=== PATIENT | female | born 1945 | race Hispanic/Latino ===

== ENCOUNTER 2018-10-03 16:31 | Emergency (ER) | payer MEDICARE, OTHER ==
[2018-10-03 16:42] VITALS: PULSE 77; RESP 18; TEMP 98.6; O2SAT 99
--- NOTE | 2018-10-03 17:51 | CT ---
Date of service: 10/03/2018 PROCEDURE: CT HEAD WITHOUT CONTRAST. HISTORY: trauma to right side of head with dizziness COMPARISON: None available. TECHNIQUE: Axial computed tomography images were obtained through the head/brain without intravenous contrast. Radiation dose: Total exam DLP = 749.25 mGy-cm. This CT exam was performed using one or more of the following dose reduction techniques: Automated exposure control, adjustment of the mA and/or kV according to patient size, and/or use of iterative reconstruction technique. FINDINGS: HEMORRHAGE: No intracranial hemorrhage. BRAIN: Good corticomedullary differentiation is seen. Limited but proportional, diffuse expansion of the ventriculosulcal and cisternal spaces is appreciated with very mild white matter lucency compatible with diffuse cerebral atrophy and chronic microangiopathy. No suspicious extra-axial fluid collection is identified and the midline brain anatomy appears grossly nonfocal as imaged. There is no mass effect throughout. VENTRICLES: Unremarkable. No hydrocephalus. CALVARIUM: No destructive bony lesion or displaced fracture identified including through the skullbase. PARANASAL SINUSES: Unremarkable as visualized. No significant inflammatory changes. MASTOID AIR CELLS: Unremarkable as visualized. No inflammatory changes. OTHER FINDINGS: None. IMPRESSION: Limited age-appropriate age related neuro degenerative change are identified without definite acute intracranial findings as discussed above. No fracture identified.
--- NOTE | 2018-10-03 18:29 | ED PDOC ---
HPI: Trauma/Fall - HPI Time Seen by Provider: 10/03/18 17:06 Chief Complaint (Nursing): Trauma Chief Complaint (Provider): fall injuries History Per: Patient History/Exam Limitations: no limitations Onset/Duration Of Symptoms: Days (today) Location Of Injury: Right: Hand Associated Symptoms: denies: LOC Additional Complaint(s): Sheba Bernabe is a 72 year old female, with no significant past medical history, who presents to the emergency department complaining of pain to right hand and head s/p mechanical fall today. Patient reports she was walking with daughter when she slipped on the sidewalk hitting the right side of her face. Patient states she fell with her right hand out. She initially had pain to the r ight knee but no swelling and states pain has since resolved. She reports feeling nauseous immediately after falling but denies any LOC. Patient went home for a while and came to ED to make sure there was no occult injury. She denies any other injuries or medical complaints. PMD: None provided. Past Medical History Reviewed: Historical Data, Nursing Documentation, Vital Signs Vital Signs: Last Vital Signs Temp 98.6 F 10/03/18 16:39 Pulse 77 10/03/18 16:39 Resp 18 10/03/18 16:39 BP 148/70 10/03/18 16:39 Pulse Ox 99 10/03/18 16:39 - Medical History PMH: No Chronic Diseases - Surgical History Surgical History: No Surg Hx - Family History Family History: States: Unknown Family Hx - Immunization History Hx Tetanus Toxoid Vaccination: Yes Hx Influenza Vaccination: No Hx Pneumococcal Vaccination: Yes (2015) - Allergies Allergies/Adverse Reactions: Allergies Allergy/AdvReac Type Severity Reaction Status Date / Time Penicillins Allergy RASH Verified 10/03/18 16:39 thimerosal Allergy RASH Verified 10/03/18 16:39 Review of Systems ROS Statement: Except As Marked, All Systems Reviewed And Found Negative Gastrointestinal: Negative for: Nausea (resolved) Musculoskeletal: Positive for: Hand Pain (right), Other (head). Negative for: Leg Pain (no swelling) Neurological: Negative for: Other (LOC) Physical Exam - Reviewed Nursing Documentation Reviewed: Yes Vital Signs Reviewed: Yes - Physical Exam Appears: Positive for: No Acute Distress Head Exam: Positive for: ATRAUMATIC (No visible trauma, swelling, ecchymosis or abrasions), NORMAL INSPECTION, NORMOCEPHALIC Skin: Positive for: Normal Color, Warm, Dry Eye Exam: Positive for: Normal appearance, EOMI, PERRL ENT: Positive for: Normal ENT Inspection Neck: Positive for: Normal, Painless ROM, Supple Cardiovascular/Chest: Positive for: Regular Rate, Rhythm. Negative for: Murmur Respiratory: Positive for: Normal Breath Sounds. Negative for: Respiratory Distress Pulses-Radial (L): 2+ Pulses-Radial (R): 2+ Gastrointestinal/Abdominal: Positive for: Normal Exam, Soft. Negative for: Tenderness Back: Positive for: Normal Inspection. Negative for: L CVA Tenderness, R CVA Tenderness, Vertebral Tenderness Extremity: Positive for: Normal ROM (Full ROM of right hand and all digits.), Other (Distal pulses 2+). Negative for: Deformity, Swelling (to right hand) Neurologic/Psych: Positive for: Alert, wire transfer clerk II-XII (intact), Oriented (x3), Cerebellar Tests (normal), Gait (ambulatory w/o deficits). Negative for: Motor/Sensory Deficits - ECG O2 Sat by Pulse Oximetry: 99 (RA) Pulse Ox Interpretation: Normal Medical Decision Making Medical Decision Making: Time: 17:06 Initial Impression: Work up for intracranial injury w/ noncontrast CT. Work up for injury to right hand w/ x-ray. Patient declined pain medications. Initial Plan: --Head w/o contrast [CT] --Hand right 3 views [RAD] --Reevaluation 17:[address] FINDINGS: HEMORRHAGE: No intracranial hemorrhage. BRAIN: Good corticomedullary differentiation is seen. Limited but proportional, diffuse expansion of the ventriculosulcal and cisternal spaces is appreciated with very mild white matter lucency compatible with diffuse cerebral atrophy and chronic microangiopathy. No suspicious extra-axial fluid collection is identified and the midline brain anatomy appears grossly nonfocal as imaged. There is no mass effect throughout. VENTRICLES: Unremarkable. No hydrocephalus. CALVARIUM: No destructive bony lesion or displaced fracture identified including through the skullbase. PARANASAL SINUSES: Unremarkable as visualized. No significant inflammatory changes. MASTOID AIR CELLS: Unremarkable as visualized. No inflammatory changes. OTHER FINDINGS: None. IMPRESSION: Limited age-appropriate age related neuro degenerative change are identified without definite acute intracranial findings as discussed above. No fracture identified. Scribe Attestation: Documented by Chay Ribeiro, acting as a scribe for Winnie Pretty MD. Provider Scribe Attestation: All medical record entries made by the Scribe were at my direction and personally dictated by me. I have reviewed the chart and agree that the record accurately reflects my personal performance of the history, physical exam, medical decision making, and the department course for this patient. I have also personally directed, reviewed, and agree with the discharge instructions and disposition. 1830: Xray of the hand shows no fractures or dislocation. Brain CT shows no acute injury Pt to follow up with primary medical doctor as needed. Return parameters discussed with the patient and her daughter. Disposition - Disposition Disposition: Routine/Home Disposition Time: 18:38 Condition: STABLE Forms: [employer] ([employer])
--- NOTE | 2018-10-03 19:24 | RAD ---
PROCEDURE: Right Hand Radiographs. HISTORY: pain on ulnar side of hand after fall COMPARISON: None. FINDINGS: BONES: Diffuse osteopenia suggests osteoporosis. No fracture or destructive bony lesion appreciable. JOINTS: No subluxation or dislocation identified. 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 SOFT TISSUES: Normal. OTHER FINDINGS: None. IMPRESSION: Diffuse degenerative changes primarily in the digits and basal joint as discussed above. No fracture is appreciate including the 5th digit right hand. Diffuse osteopenia suggests osteoporosis.
[2018-10-03 19:36] VITALS: BP 142/80
== END 2018-10-03 18:45 | disposition home or self-care (01) ==
LOC: H.ER 16:31
DX: S69.91XA Unspecified injury of right wrist, hand and finger(s), initial encounter (principal); S09.90XA Unspecified injury of head, initial encounter; W19.XXXA Unspecified fall, initial encounter; Y92.89 Other specified places as the place of occurrence of the external cause; Z88.0 Allergy status to penicillin